=== PATIENT | female | born 2000 | race Two or more races ===

== ENCOUNTER 2022-09-30 15:50 | Emergency (ER) | payer MEDICAID, OTHER ==
[~2022-09-30] VITALS: Ht 165.1 cm; Wt 65.6 kg
[2022-09-30 17:32] VITALS: BP 123/67
[2022-09-30 18:47] LABS: Urine Bacteria FEW /hpf (None Seen); Urine Blood Negative /uL (Negative); Urine Hyaline Cast FEW /lpf (0 - 2); Urine Mucus FEW (None Seen); Urine Specific Gravity 1.024 (1.001-1.035); Urine WBC 22 /hpf (0 - 5)
[2022-09-30 19:10] LABS: Basophils # (auto) 0 10 ^3/uL (0-0.2); Basophils % (auto) 0.4 % (0.0-2.0); Eosinophils # (auto) 0 10 ^3/uL (0-0.8); Eosinophils % (auto) 0.5 % (0.0-7.0); Hematocrit 39.9 % (36.0-46.0); Hemoglobin 13.6 g/dL (12.2-16.2); Lymphocytes % (auto) 22.3 % (10.0-50.0); Mean Corpuscular Volume 85.3 fL (80.0-100.0); Monocytes # (auto) 0.8 10 ^3/uL (0-1.3); Monocytes % (auto) 9.3 % (0.0-12.0); Neutrophils # (auto) 5.9 10 ^3/uL (1.6-8.6); Neutrophils % (auto) 67.5 % (37.0-80.0); Nucleated Red Blood Cells % 0.1 %; Red Blood Cells 4.68 10^6/uL (4.0-5.20); Red Cell Distribution Width 12.9 % (11.8-14.3); White Blood Cell 8.8 10^3/uL (4.4-10.8)
[2022-09-30 19:28] LABS: Albumin 3.8 g/dL (3.4-5.0); Calcium 9.6 mg/dL (8.5-10.1); Potassium 4.3 mmol/L (3.5-5.1)
[2022-09-30 19:30] LABS: Bilirubin, Total 0.5 mg/dL (0.2-1.0); Total Protein 7.6 g/dL (6.4-8.2)
[2022-09-30] MEDS ORDERED: CEPH-510 PO (22:07)
== END 2022-10-01 00:30 | disposition home or self-care (01) ==
LOC: EDBD → ER 15:55
DX: O23.42 Unspecified infection of urinary tract in pregnancy, second trimester (principal); N39.0 Urinary tract infection, site not specified; Z3A.15 15 weeks gestation of pregnancy
CPT/HCPCS: 36415; 76805; 80053; 81001; 84702; 85025

== ENCOUNTER 2022-10-05 15:24 | Emergency (ER) | payer MEDICAID ==
[~2022-10-05] VITALS: Ht 165.1 cm; Wt 68.0 kg
[~2022-10-05 15:24] MED LIST: CEPH-510 PO
[2022-10-05] MEDS ORDERED: ONDANSETRON HCL 4 MG/2 ML VIAL IV ONE (16:15)
[2022-10-05] MEDS ORDERED: SODIUM CHLORIDE 0.9% 1,000 ML IVB ONE (16:15)
[2022-10-05] MEDS ORDERED: ACETAMINOPHEN 325 MG TAB PO ONE (16:15)
[2022-10-05 16:52] LABS: Basophils # (auto) 0 10 ^3/uL (0-0.2); Basophils % (auto) 0.2 % (0.0-2.0); Eosinophils # (auto) 0 10 ^3/uL (0-0.8); Eosinophils % (auto) 0.1 % (0.0-7.0); Hematocrit 36.5 % (36.0-46.0); Hemoglobin 12.6 g/dL (12.2-16.2); Lymphocytes # (auto) 0.1 10 ^3/uL (0.4-5.4); Lymphocytes % (auto) 2.5 % (10.0-50.0); Mean Corpuscular Hemoglobin 29.3 pg (28.0-32.0); Mean Corpuscular Hgb Conc. 34.6 g/dL (32.0-36.0); Mean Corpuscular Volume 84.7 fL (80.0-100.0); Monocytes # (auto) 0.5 10 ^3/uL (0-1.3); Monocytes % (auto) 9.4 % (0.0-12.0); Neutrophils # (auto) 4.9 10 ^3/uL (1.6-8.6); Neutrophils % (auto) 87.8 % (37.0-80.0); Red Blood Cells 4.31 10^6/uL (4.0-5.20); Red Cell Distribution Width 12.7 % (11.8-14.3); White Blood Cell 5.6 10^3/uL (4.4-10.8)
[2022-10-05 17:04] LABS: Albumin 3.7 g/dL (3.4-5.0); Calcium 9.1 mg/dL (8.5-10.1); Potassium 3.7 mmol/L (3.5-5.1)
[2022-10-05 17:06] LABS: BUN/Creatinine Ratio 7.9
[2022-10-05 17:09] LABS: Bilirubin, Total 0.4 mg/dL (0.2-1.0); Total Protein 7.4 g/dL (6.4-8.2)
[2022-10-05 17:34] LABS: Urine Bacteria MOD /hpf (None Seen); Urine Blood Negative /uL (Negative); Urine Hyaline Cast FEW /lpf (0 - 2); Urine Mucus FEW (None Seen); Urine WBC 2 /hpf (0 - 5)
[2022-10-05 21:39] VITALS: BP 93/50
== END 2022-10-05 21:48 | disposition home or self-care (01) ==
LOC: ER 15:24
DX: O23.42 Unspecified infection of urinary tract in pregnancy, second trimester (principal); N39.0 Urinary tract infection, site not specified; Z3A.15 15 weeks gestation of pregnancy
CPT/HCPCS: 36415; 80053; 81001; 83605; 84702; 85025; 87040; 96361; 96374; 99283; J2405; J7030

== ENCOUNTER 2023-01-25 17:44 | Emergency (ER) | payer MEDICAID ==
[~2023-01-25] VITALS: Ht 165.1 cm; Wt 76.1 kg
[2023-01-25] MEDS ORDERED: HYDR2.5C39 TOP (18:25)
[2023-01-25 18:47] LABS: Basophils # (auto) 0 10 ^3/uL (0-0.2); Basophils % (auto) 0.2 % (0.0-2.0); Eosinophils # (auto) 0.1 10 ^3/uL (0-0.8); Eosinophils % (auto) 0.9 % (0.0-7.0); Hematocrit 33.2 % (36.0-46.0); Hemoglobin 11.1 g/dL (12.2-16.2); Lymphocytes # (auto) 1.8 10 ^3/uL (0.4-5.4); Lymphocytes % (auto) 19.3 % (10.0-50.0); Mean Corpuscular Hemoglobin 28.5 pg (28.0-32.0); Mean Corpuscular Hgb Conc. 33.6 g/dL (32.0-36.0); Mean Corpuscular Volume 84.8 fL (80.0-100.0); Monocytes # (auto) 1.1 10 ^3/uL (0-1.3); Monocytes % (auto) 12.1 % (0.0-12.0); Neutrophils # (auto) 6.1 10 ^3/uL (1.6-8.6); Neutrophils % (auto) 67.5 % (37.0-80.0); Nucleated Red Blood Cells % 0.1 %; Red Blood Cells 3.91 10^6/uL (4.0-5.20); Red Cell Distribution Width 12.8 % (11.8-14.3); White Blood Cell 9.1 10^3/uL (4.4-10.8)
[2023-01-25 18:57] LABS: Albumin 2.8 g/dL (3.4-5.0); Calcium 8.8 mg/dL (8.5-10.1); Potassium 3.7 mmol/L (3.5-5.1)
[2023-01-25 19:02] LABS: BUN/Creatinine Ratio 15.3 (10.0-20.0); Bilirubin, Total 0.3 mg/dL (0.2-1.0)
[2023-01-25 19:50] VITALS: BP 112/64
== END 2023-01-25 20:00 | disposition home or self-care (01) ==
LOC: ER 17:44
DX: O99.613 Diseases of the digestive system complicating pregnancy, third trimester (principal); K92.1 Melena; O99.013 Anemia complicating pregnancy, third trimester; Z79.899 Other long term (current) drug therapy; Z3A.31 31 weeks gestation of pregnancy
CPT/HCPCS: 36415; 80053; 85025

== ENCOUNTER 2024-06-20 13:55 | Emergency (ER) | payer MEDICAID ==
[~2024-06-20] VITALS: Ht 165.1 cm; Wt 94.5 kg
[~2024-06-20 13:55] MED LIST changes: +HYDR2.5C39 TOP
[2024-06-20 15:43] LABS: Urine Bacteria FEW /hpf (None Seen); Urine Blood 1+ /uL (Negative); Urine Clarity Clear (Clear); Urine Color Light-Yellow (Yellow); Urine Mucus FEW (None Seen); Urine Protein, UAD Negative (Negative); Urine Urobilinogen Normal (Negative); Urine WBC 5 /hpf (0 - 5)
[2024-06-20 16:05] VITALS: BP 115/72; PULSE 82; RESP 16; TEMP 97.8; O2SAT 97
== END 2024-06-20 16:11 | disposition home or self-care (01) ==
LOC: ER 13:55
DX: R20.0 Anesthesia of skin (principal); Z79.899 Other long term (current) drug therapy
CPT/HCPCS: 81001; 81025

== ENCOUNTER 2024-09-30 18:00 | Emergency (ER) | payer MEDICAID ==
[~2024-09-30] VITALS: Ht 165.1 cm; Wt 96.3 kg
[2024-09-30 19:07] VITALS: PULSE 76; RESP 16; O2SAT 99
[2024-09-30] MEDS: KETOROLAC TROMETH 60MG/2ML VIAL IM ONE (20:01)
--- NOTE | 2024-09-30 20:05 | DVH ---
INDICATION: pain/injury TECHNIQUE: 3 views of the lumbar spine were obtained. COMPARISON: None FINDINGS: There are no acute fractures or subluxations. Moderate volume colonic stool. IMPRESSION: No acute fracture or subluxation.
--- NOTE | 2024-09-30 20:26 | ED.PDOC ---
Back pain HPI HPI Comments THIS IS A 24-YEAR-OLD FEMALE PRESENTS TO THE ED WITH CHIEF COMPLAINT BACK PAIN. PATIENT STATES SHE WAS ON A WALK STARTED GETTING LEFT AND RIGHT LOWER BACK PAIN LEFT GREATER THAN RIGHT RADIATES TO THE LEFT ABDOMEN. SHE NOTES PAIN IS 8/10 ON PAIN SCALE SHARP IN NATURE. HAS NOT TAKEN ANY RELIEF MEASURES. SHE DENIES ANY KNOWN INJURY DENIES NUMBNESS WEAKNESS LOSS OF BOWEL OR BLADDER CONTROL OR SADDLE ANESTHESIA. Chief Complaint: Back Pain Time Seen by MD: 18:40 Primary Care Provider: NONE Reviewed Notes: Nurses Notes, Medications, Allergies Allergies: Coded Allergies: NO KNOWN ALLERGIES (Unverified , 09/30/22) Home Meds Active Scripts Hydrocortisone Base (Anusol-Hc) 2.5 % Cre, 1 APPLIC TOP BID PRN for 10 Days, #30 GRAMS 1 Refill Prov:RAY LEONARDO MD 01/25/23 Cephalexin ( Keflex 500) 500 Mg Cap, 1 CAP PO TID for 4 Days, #12 CAP Prov:ELIZABETH ALBARRAN 09/30/22 Information Source: Patient Mode of Arrival: Ambulatory Past Medical History PAST MEDICAL HISTORY: Denies Surgical History: Denies all surgeries POULTRY SLAUGHTERER History: No Pertinent POULTRY SLAUGHTERER History Family History Family History: Family hx of Cancer Social History Smoker: Non-Smoker Alcohol: Denies ETOH Use Drugs: Denies Drug Use Lives In: Home Constitutional: denies: chills, diaphoresis, fatigue, fever, malaise, sweats, weakness, others EENTM: denies: blurred vision, double vision, ear bleeding, ear discharge, ear drainage, ear pain, ear ringing, eye pain, eye redness, hearing loss, mouth pain, mouth swelling, nasal discharge, nose bleeding, nose congestion, nose pain, photophobia, tearing, throat pain, throat swelling, voice changes, others Respiratory: denies: cough, hemoptysis, orthopnea, SOB at rest, shortness of breath, SOB with excertion, stridor, wheezing, others Cardiovascular: denies: chest pain, dizzy spells, diaphoresis, Dyspnea on exertion, edema, irregular heart beat, left arm pain, lightheadedness, palpitations, PND, syncope, others Gastrointestinal: denies: abdomen distended, abdominal pain, blood streaked bowels, constipated, diarrhea, dysphagia, difficulty swallowing, hematemesis, melena, nausea, poor appetite, poor fluid intake, rectal bleeding, rectal pain, vomiting, others Genitourinary: denies: abnormal vagina bleeding, burning, dyspareunia, dysuria, flank pain, frequency, hematuria, incontinence, pain, , vagina discharge, urgency, others Neurological: denies: dizziness, fainting, headache, left sided numbness, left sided weakness, numbness, paresthesia, pre-existing deficit, right sided numbness, right sided weakness, seizure, speech problems, tingling, tremors, weakness, others Musculoskeletal: reports: back pain; denies: gout, joint pain, joint swelling, muscle pain, muscle stiffness, neck pain, others Integumetry: denies: bruises, change in color, change in hair/nails, dryness, laceration, lesions, lumps, rash, wounds, others Allergic/Immunocompromised: denies: Difficulty Healing, Frequent Infections, Hives, Itching, others Hematologic/Lymphatic: denies: anemia, blood clots, easy bleeding, easy bruising, swollen glands, others Endocrine: denies: excessive hunger, excessive sweating, excessive thirst, excessive urination, flushing, intolerance to cold, intolerance to heat, unexplained weight gain, unexplained weight loss, others Psychiatric: denies: anxiety, bipolar disorder, depression, hopeless, panic disorder, schizophrenia, sleepless, suicidal, others Physical Exam General Appearance: No Apparent Distress, Normal HEENT: Pharynx Normal Neck: Full Range of Motion, Non-Tender Respiratory: Lungs Clear, No Respiratory Distress, Normal Breath Sounds Cardiovascular: No Murmur, Normal Peripheral Pulses, Regular Rate/Rhythm Breast Exam: Deferred Gastrointestinal: No Organomegaly, Non Tender, No Pulsatile Mass, Normal Bowel Sounds, Soft Genitalia: Deferred Pelvic: Deferred Rectal: Deferred Extremities: Normal capillary refill, Normal inspection, Normal range of motion, Non-tender, No pedal edema Musculoskeletal : Location: Bilateral Extremity Location: Back (TENDERNESS NOTED OVER BILATERAL LOWER BACK MUSCULATURE WITH NOTED SPASMS. MILD TENDERNESS PALPATED OVER L1 THROUGH L5 WITHOUT CREPITUS OR STEP-OFFS NO NOTED LESIONS, ABRASIONS, ECCHYMOSIS OR LACERATIONS. NEGATIVE STRAIGHT LEG RAISE BILATERAL. STRENGTH SENSORY MOTION INTACT LOWER EXTREMITIES ALONG WITH POSITIVE PEDAL PULSES.) Apperance: Normal Neurologic: Alert, cost accounting analyst II-XII nml as Tested, No Motor Deficits, Normal Affect, Normal Mood, No Sensory Deficits Cerebellar Function: Normal Reflexes: Normal Skin: Dry, Normal Color, Warm Lymphatic: No Adenopathy Was a procedure done? Was a procedure done?: No Back Pain Differential Dx Differential Diagnosis: Fracture, Musculoskeletal Pain X-Ray, Labs, Meds, VS Vital Signs Date Time Temp Pulse Resp B/P (MAP) Pulse Ox O2 Delivery O2 Flow Rate FiO2 09/30/24 20:50 98.0 84 16 121/58 (79) 96 98.0 09/30/24 19:07 98.1 76 16 114/65 (81) 99 98.1 09/30/24 19:07 76 16 99 Room Air* 0 21 09/30/24 18:29 98.1 76 16 114/65 (81) 99 Current Medications Medications (Trade) Dose Ordered Sig/Jeannie Route Start Time Stop Time Status Last Admin Ketorolac Tromethamine (Toradol Injection) 60 mg ONCE ONCE IM 09/30/24 19:30 09/30/24 19:31 DC 09/30/24 20:01 X-Ray, Labs, Meds, VS Comment LUMBAR SPINE X-RAY SHOWS NO ACUTE FRACTURES OR OSSEOUS LESIONS. IT DOES SHOW MODERATE: CONSTIPATION. PATIENT DOES STATE SHE HAS BEEN CONSTIPATED OVER THE PAST FEW DAYS. PATIENT WAS GIVEN TORADOL 60 MG IM NOTES IMPROVEMENT IN PAIN AND FUNCTION REQUESTING DISCHARGE AT THIS TIME. ADVISED TO REST INCREASE P.O. FLUIDS CONSIDER [id number] METAMUCIL, STOOL SOFTENERS APPEARANCE. ADVISED TO FOLLOW UP WITH PCP IN 2-3 DAYS NECESSARY CONSIDER IMAGING IF PAIN CONTINUES OR WORSENS SUCH MRI. PATIENT STATES SHE ALREADY HAS A PRESCRIPTION FOR 800 MG OF IBUPROFEN CURRENT NOT REQUESTING ANY PAIN MEDICATIONS. ER RETURN PRECAUTIONS GIVEN PATIENT INDICATED UNDERSTANDING AGREES WITH DISCHARGE PLAN OF CARE. Time of 1ST Reevaluation: 20:25 Reevaluation 1ST: Improved Patient Education/Counseling: Diagnosis, Treatment, Prognosis, Need For Follow Up Family Education/Counseling: No Family Present Departure 1 Departure Time of Disposition: 02:41 Impression: Primary Impression: Lumbar sprain Qualified Codes: S33.5XXA - Sprain of ligaments of lumbar spine, initial encounter Additional Impression: Constipation Qualified Codes: K59.00 - Constipation, unspecified Disposition: HOME / SELF CARE / HOMELESS Condition: Stable Discharged With: Self Critical Care Note Critical Care Time?: No Stability Stability form required: SERGEY Hawkins Sep 30, 2024 20:25
[2024-09-30 20:50] VITALS: BP 121/58; PULSE 84; RESP 16; TEMP 98; O2SAT 96
== END 2024-09-30 21:02 | disposition home or self-care (01) ==
LOC: ER 18:00
DX: S33.5XXA Sprain of ligaments of lumbar spine, initial encounter (principal); K59.00 Constipation, unspecified; X58.XXXA Exposure to other specified factors, initial encounter; Y93.01 Activity, walking, marching and hiking; Y92.89 Other specified places as the place of occurrence of the external cause; Y99.8 Other external cause status
CPT/HCPCS: 72100; 96372; 99283; J1885